=== PATIENT | male | born 1955 | race African-American/Black ===

== ENCOUNTER 2023-07-29 12:48 | Inpatient (IN) | payer OTHER ==
[2023-07-29] MEDS ORDERED: niCARdipine 25 MG/10 ML SDV ONE ×2 (13:43→16:47)
[2023-07-29 14:49] LABS: Troponin I 0.029 ng/mL (< 0.028)
[2023-07-29] MEDS ORDERED: Lisinopril 20 MG TAB ONE (15:31)
[2023-07-29] MEDS ORDERED: Amlodipine 5 MG TAB ONE (15:31)
[2023-07-29] MEDS ORDERED: Ondansetron ODT 4 MG TAB PO PRN (15:55)
[2023-07-29] MEDS ORDERED: hydrALAZINE 20 MG/ML VIAL SLOW IVP PRN ×3 (16:01→17:33)
[2023-07-29] MEDS ORDERED: Diclofenac 1% 50 GM TOPICAL GEL TP PRN (16:04)
[2023-07-29] MEDS ORDERED: Cyclobenzaprine 10 MG TAB PO PRN (16:09)
[2023-07-29] MEDS ORDERED: hydrALAZINE 20 MG/ML VIAL ONE ×2 (16:22→19:36)
[2023-07-29] MEDS ORDERED: Morphine 2 MG/ML VIAL ONE (17:17)
[2023-07-29] MEDS ORDERED: hydrALAZINE 25 MG TAB ONE (17:46)
[2023-07-29 18:25] LABS: Troponin I 0.025 ng/mL (< 0.028)
[2023-07-29] MEDS: Lisinopril 20 MG TAB PO SCH ×2 (21:30→21:37)
[2023-07-29] MEDS: Amlodipine 10 MG TAB PO SCH (21:30)
[2023-07-29] MEDS: Pantoprazole DR 40 MG TAB PO SCH ×2 (21:31→21:37)
[2023-07-29] MEDS: hydrALAZINE 25 MG TAB PO SCH (21:37)
[2023-07-29] MEDS: Morphine 2 MG/ML VIAL SLOW IVP PRN (21:38)
[2023-07-29 22:47] VITALS: BMI 25.9
[2023-07-29 23:35] LABS: Troponin I 0.029 ng/mL (< 0.028)
[2023-07-30 04:32] LABS: #Basophils 0.03 10x3/uL (0.0-0.2); %Basophils 0.3 % (0.0-1.0); %Eosinophils 5.9 % (0.0-10.0); %Lymphocytes 31.2 % (21.0-51.0); %Monocytes 5.6 % (0.0-10.0); %Neutrophils 56.8 % (42.0-75.0); Hematocrit 42.3 % (42.0-52.0); Hemoglobin 14.4 g/dL (14.0-18.0); Mean Corpuscular Hemoglobin 29.9 pg (27.0-31.0); Mean Corpuscular Volume 87.9 fL (78.0-98.0); Mean Platelet Volume 9.7 fL (7.4-10.4); Platelet Count 277 10x3/uL (130-400); RBC Distribution Width 13.9 % (11.5-14.5); Red Blood Cell (RBC) Count 4.81 mill/uL (4.70-6.10)
[2023-07-30 04:59] LABS: Troponin I 0.034 ng/mL (< 0.028)
[2023-07-30 05:02] LABS: ALT (SGPT) 13 U/L (8-55); AST (SGOT) 16 U/L (5-34); Albumin 3.5 g/dL (3.4-4.8); Alkaline Phosphatase 72 U/L (40-110); Anion Gap 14 mmol/L (10-20); BUN (Urea Nitrogen) 12 mg/dL (8.4-25.7); Bilirubin, Total 1.3 mg/dL (0.2-1.2); Calc. Creatinine Clearance 66 mL/min (70-130); Calcium 9.1 mg/dL (7.8-10.44); Carbon Dioxide 23 mmol/L (23-31); Chloride 104 mmol/L (98-107); Estimated GFR 64; Globulin 4.1 g/dL (2.4-3.5); Glucose 122 mg/dL (80-115); Potassium 3.1 mmol/L (3.5-5.1); Protein, Total 7.6 g/dL (5.8-8.1); Sodium 138 mmol/L (136-145)
[2023-07-30 07:26] VITALS: BMI 25.9
[2023-07-30] MEDS ORDERED: Lisinopril 20 MG TAB PO SCH (09:00)
[2023-07-30] MEDS ORDERED: Pantoprazole DR 40 MG TAB PO SCH (09:00)
[2023-07-30] MEDS: Amlodipine 10 MG TAB PO SCH (09:20)
[2023-07-30] MEDS: Enoxaparin 40 MG (0.4 mL) SYRINGE SC SCH (09:21)
[2023-07-30] MEDS: Potassium Chloride 20 MEQ TAB PO SCH (09:24)
[2023-07-30] MEDS: Metoprolol Tartrate 25 MG TAB PO SCH (21:37)
[2023-07-30] MEDS: Atorvastatin Calcium 40 MG TAB PO SCH (21:37)
[2023-07-31 04:20] LABS: Mean Platelet Volume 9.9 fL (7.4-10.4)
[2023-07-31 04:39] LABS: Anion Gap 12 mmol/L (10-20); BUN (Urea Nitrogen) 14 mg/dL (8.4-25.7); Calc. Creatinine Clearance 67 mL/min (70-130); Calcium 9.4 mg/dL (7.8-10.44); Carbon Dioxide 25 mmol/L (23-31); Cardiac Risk 5.4 (Less than 4.5); Chloride 105 mmol/L (98-107); Cholesterol 243 mg/dl (< 200 Desired); Estimated GFR 65; Glucose 94 mg/dL (80-115); HDL Cholesterol 45 mg/dL (>60 Neg Risk); LDL Cholesterol, Calculated 172 mg/dL; Potassium 3.9 mmol/L (3.5-5.1); Sodium 138 mmol/L (136-145); Triglycerides 128 mg/dL (Less than 150)
[2023-07-31 04:54] LABS: #Basophils 0.05 10x3/uL (0.0-0.2); %Basophils 0.5 % (0.0-1.0); %Eosinophils 6.5 % (0.0-10.0); %Lymphocytes 33.7 % (21.0-51.0); %Monocytes 6.5 % (0.0-10.0); %Neutrophils 52.4 % (42.0-75.0); Hematocrit 40.9 % (42.0-52.0); Hemoglobin 13.9 g/dL (14.0-18.0); Mean Corpuscular Hemoglobin 30.3 pg (27.0-31.0); Mean Corpuscular Volume 89.3 fL (78.0-98.0); Platelet Count 264 10x3/uL (130-400); RBC Distribution Width 13.8 % (11.5-14.5); Red Blood Cell (RBC) Count 4.58 mill/uL (4.70-6.10)
[2023-07-31] MEDS ORDERED: Regadenoson 0.4 MG/5 ML SYRINGE ONE (08:54)
[2023-07-31] MEDS: Clopidogrel Bisulfate 75 MG TAB PO SCH (10:21)
[2023-07-31] MEDS: Lidocaine 4% Patch TD SCH (10:22)
[2023-07-31] MEDS ORDERED: hydrALAZINE 25 MG TAB PO SCH (15:00)
[2023-07-31 15:45] VITALS: BP 158/88; TEMP 98.6
[2023-07-31] MEDS ORDERED: Transdermal Patch Removal TOP SCH (21:00)
[2023-08-04 06:14] LABS: A/G Ratio 0.9 (0.7-1.7); Albumin 3.6 g/dL (2.9-4.4); Alpha 1 0.3 g/dL (0.0-0.4); Alpha 2 0.9 g/dL (0.4-1.0); Beta 1.2 g/dL (0.7-1.3); Gamma 1.7 g/dL (0.4-1.8); Globulin, Total 4.1 g/dL (2.2-3.9); M-Spike 0.3 g/dL (Not Observed); Protein Electrophoresis Intrp Note: (.)
== END 2023-07-31 15:47 | disposition home or self-care (01) | DRG 282 ==
LOC: ERS 12:48 → 2NO 20:38
PROVIDERS: ADMIT Internal Medicine; ATTEND Internal Medicine
DX: I16.1 Hypertensive emergency (principal); I21.A1 Myocardial infarction type 2; R10.13 Epigastric pain; R10.12 Left upper quadrant pain; I10 Essential (primary) hypertension; Z88.8 Allergy status to other drugs, medicaments and biological substances; Z87.891 Personal history of nicotine dependence; Z86.73 Personal history of transient ischemic attack (TIA), and cerebral infarction without residual deficits
CPT/HCPCS: 36415; 36416; 70450; 70551; 74176; 76700; 78452; 80048; 80053; 80061; 83880; 84155; 84165; 84484; 85025; 86335; 93005; 93017; 93306; A9502; J0360; J1650; J2272; J2785